=== PATIENT | male | born 1955 | race Caucasian/White ===

== ENCOUNTER 2020-04-22 00:23 | Emergency (ER) | payer BC, OTHER ==
[~2020-04-22] VITALS: Ht 185.4 cm; Wt 91.0 kg
[~2020-04-22 00:23] MED LIST: TETRACAINE 0.5% OPHTH SOLN 4 ML BTL (SINGLE DOSE ONLY) ONE
[2020-04-22 00:26] VITALS: BP 165/90
[2020-04-22] MEDS ORDERED: NS IV 1000 ML 2,000 ML ONE (00:27)
--- OUTSIDE RECORDS SUMMARY | 2020-04-22 00:30 | XMS REPORT | Continuity of Care Document ---
Author Organization Unknown Address Unknown Phone Unavailable Allergies There is no data. Medications There is no data. Problems There is no data. Procedures There is no data. Results Test Result Range PDM - 09 PANEL (PROFILE 1) - 08/22/19 08 :05 Prescribed Drug 1 Alprazolam NRG Creatinine 89.0 mg/dL > or = 20.0 pH 6.0 4.5-9.0 Oxidant NEGATIVE mcg/mL <200 Amphetamines NEGATIVE ng/mL <500 medMATCH Amphetamines CONSISTENT NRG Benzodiazepines POSITIVE ng/mL <100 Marijuana Metabolite NEGATIVE ng/mL <20 medMATCH Marijuana Metab CONSISTENT NRG Cocaine Metabolite NEGATIVE ng/mL <150 medMATCH Cocaine Metab CONSISTENT NRG Opiates NEGATIVE ng/mL <100 medMATCH Opiates CONSISTENT NRG Oxycodone NEGATIVE ng/mL <100 medMATCH Oxycodone CONSISTENT NRG COMMENT NRG Alphahydroxyalprazolam 51 ng/mL <25 medMATCH aOH alprazolam CONSISTENT NRG Alphahydroxymidazolam NEGATIVE ng/mL < 50 medMATCH aOH midazolam CONSISTENT NRG Alphahydroxytriazolam NEGATIVE ng/mL < 50 medMATCH aOH triazolam CONSISTENT NRG Aminoclonazepam NEGATIVE ng/mL <25 medMATCH Aminoclonazepam CONSISTENT NRG Hydroxyethylflurazepam NEGATIVE ng/mL <50 medMATCH OH,Et flurazepam CONSISTENT NR G Lorazepam NEGATIVE ng/mL <50 medMATCH Lorazepam CONSISTENT NRG Nordiazepam NEGATIVE ng/mL <50 medMATCH Nordiazepam CONSISTENT NRG Oxazepam NEGATIVE ng/mL <50 medMATCH Oxazepam CONSISTENT NRG Temazepam NEGATIVE ng/mL <50 medMATCH Temazepam CONSISTENT NRG Barbiturates NEGATIVE ng/mL <300 medMATCH Barbiturates CONSISTENT NRG Methadone Metabolite NEGATIVE ng/mL <100 medMATCH Methadone Metab CONSISTENT NRG Phencyclidine NEGATIVE ng/mL <25 medMATCH Phencyclidine CONSISTENT NRG Encounters ACCT No. Visit Date/Time Discharge Status Pt. Type Provider Facility Loc./Unit Complaint [id number] 08/22/2019 08:00:00 08/22/2019 23:59: 59 CLS Outpatient [facility] [id number] 08/22/2019 08:00:00 Document Registration [id number] 04/22/2020 00:26:[address] Emergency JOSUE MACIEL, BORIS Thomas [facility] ER FS FB IN BOTH EYES
--- NOTE | 2020-04-22 00:43 | ED General ---
General Stated Complaint: FB IN BOTH EYES Source of Information: Patient Exam Limitations: No Limitations History of Present Illness Date Seen by Provider: April 22, 2020 Time Seen by Provider: 12:25 Initial Comments This patient is a 64-year-old male that presents to the emergency Department for chemical rodriguez to the eyes. Patient states he was trying to get some chlorine powder out to do a shock on his swimming full. States some powder In his eyes. Patient states he did get in the shower and irrigate his eyes for about 20 minutes for still having some irritation and burning and scratching to his eyes. Patient's visual acuity is normal patient is a significant eye irritation. Patient had poison control called us is 1 maintain a pH of 7-8 on the eyes. On exam patient has good visual acuity as stated above. We will place Elmer's lenses and irrigated each eye with 1000 cc of normal saline. Evaluate treat further as needed. Timing/Duration: 4-6 Hours Allergies and Home Medications Allergies Coded Allergies: codeine (Verified Allergy, Unknown, 04/22/20) Patient Home Medication List Home Medication List Reviewed: Yes Review of Systems Review of Systems Constitutional: No no symptoms reported; see HPI; No chills, No diaphoresis, No dizziness, No fever, No malaise, No weakness, No weight gain, No weight loss, No other EENTM: see HPI, eye pain, tearing; No no symptoms reported, No ear discharge, No hearing loss, No ear pain, No blurred vision, No double vision, No vision loss, No dental problems, No hoarseness, No mouth pain, No mouth swelling, No epistaxis, No nose congestion, No nose pain, No throat pain, No throat swelling, No other Respiratory: No no symptoms reported, No see HPI, No cough, No dyspnea on exertion, No hemoptysis, No orthopnea, No phlegm, No short of breath, No stridor, No wheezing, No other Cardiovascular: No no symptoms reported, No see HPI, No chest pain, No edema, No Hx of Intervention, No palpitations, No syncope, No vascular heart diseas, No other Gastrointestinal: No RUQ, No LUQ, No RLQ, No LLQ, No no symptoms reported, No see HPI, No abdominal pain, No constipation, No diarrhea, No dysphagia, No hematemesis, No heartburn, No jaundice, No loss of appetite, No melena, No nausea, No vomiting, No other Genitourinary: No no symptoms reported, No see HPI, No decreased output, No discharge, No dysuria, No frequency, No hematuria, No hesitancy, No incontinence, No nocturia, No pain, No other Musculoskeletal: No no symptoms reported, No see HPI, No back pain, No gout, No joint pain, No joint swelling, No muscle pain, No muscle stiffness, No muscle cramps, No muscle twitching, No muscle weakness, No neck pain, No other Skin: No no symptoms reported, No see HPI, No change in color, No change in hair/nails, No dryness, No hx of skin cancer, No lesions, No lumps, No pruritus, No rash, No other Psychiatric/Neurological: Denies No Symptoms Reported, Denies See HPI, Denies Anxiety, Denies Depressed, Denies Emotional Problems, Denies Headache, Denies Numbness, Denies Paresthesia, Denies Pre-Existing Deficit, Denies Seizure, Denies Tingling, Denies Tremors, Denies Weakness, Denies Other Hematologic/Lymphatic: Denies No Symptoms Reported, Denies See HPI, Denies Anemia, Denies Blood Clots, Denies Easy Bleeding, Denies Easy Bruising, Denies Swollen Glands, Denies Other Immunological/Allergic: denies no symptoms reported, denies see HPI, denies food allergy, denies grass allergy, denies mold allergy, denies pollen allergy, denies HIV/AIDS, denies transplant Past Apltunl-Pqpocf-Mzwgdh Hx Patient Social History Recent Foreign Travel: No Contact w/Someone Who Travel: No Physical Exam Vital Signs Vital Signs - First Documented 04/22/20 00:26 Temp 36.1 Pulse 70 Resp 18 B/P (MAP) 165/90 (115) Pulse Ox 98 O2 Delivery Room Air Capillary Refill : Height, Weight, BMI Height: '" Weight: lbs. oz. kg; BMI Method: General Appearance: No Apparent Distress, WD/WN Eyes: Bilateral Eye Lid Inflammation, Bilateral Eye Other (the visual acuity is normal bilaterally patient does wear corrective glasses. Patient's symptoms consistent with chemical conjunctivitis.) HEENT: PERRL/EOMI, TMs Normal, Normal ENT Inspection, Pharynx Normal Neck: Full Range of Motion, Normal Inspection, Non Tender, Supple, Carotid Bruit Respiratory: Chest Non Tender, Lungs Clear, Normal Breath Sounds, No Accessory Muscle Use, No Respiratory Distress Cardiovascular: Regular Rate, Rhythm, No Edema, No Gallop, No JVD, No Murmur, Normal Peripheral Pulses Gastrointestinal: Normal Bowel Sounds, No Organomegaly, No Pulsatile Mass, Non Tender, Soft Skin: Normal Color, Warm/Dry Progress/Results/Core Measures Suspected Sepsis SIRS Temperature: Pulse: Respiratory Rate: Blood Pressure / Mean: Results/Orders My Orders Orders - BORIS SALAS MD Tetracaine 0.5% Ophth Rama Sdv (Tetracai (04/22/20 00:23) Ns Iv 1000 Ml (Sodium Chloride 0.9%) (04/22/20 00:27) Tetracaine 0.5% Ophth Rama Sdv (Tetracai (04/22/20 00:45) Ns Iv 1000 Ml (Sodium Chloride 0.9%) (04/22/20 00:45) Ns Iv 1000 Ml (Sodium Chloride 0.9%) (04/22/20 00:45) Medications Given in ED Current Medications Medications Dose Ordered Sig/Thierry Route Start Time Stop Time Status Last Admin Dose Admin Sodium Chloride 1,000 ml @ 999 mls/hr ONCE ONCE IV 04/22/20 00:45 04/22/20 01:45 04/22/20 00:45 999 MLS/HR Sodium Chloride 1,000 ml @ 999 mls/hr ONCE ONCE IV 04/22/20 00:45 04/22/20 01:45 04/22/20 00:46 999 MLS/HR Tetracaine HCl 1 OR 2 DROPS INTO AFFEC... ONCE ONCE OP 04/22/20 00:45 04/22/20 00:46 DC 04/22/20 00:46 1 ML Vital Signs/I&O 04/22/20 00:26 Temp 36.1 Pulse 70 Resp 18 B/P (MAP) 165/90 (115) Pulse Ox 98 O2 Delivery Room Air Capillary Refill : Progress Note : Time: 01:03 Progress Note Placed Morgans lens in both eyes bilaterally and irrigated with 1000 mL of normal saline to each eye. Patient's visual acuity after simms is 20/20 with corrective lenses. Patient states she is feeling much better ice continue to be significantly injected due to chemical rodriguez. Chemical conjunctivitis. We will place erythromycin ointment in eyes bilaterally. An patch eyes patiently patches in place for 12-24 hours. Patient will then be treated with Bleph-10 drops... Patient is instructed to follow up with ophthalmology in one to 2 days. Departure Impression Primary Impression: Chemical conjunctivitis of both eyes Disposition: 01 HOME, SELF-CARE Condition: Stable Departure-Patient Inst. Decision time for Depature: 01:04 Referrals: TIANA GRAFF APRN (PCP) Primary Care Physician Patient Instructions: Chemical Eye Injury (DC) Add. Discharge Instructions: Keep ice patch with erythromycin ointment for the next 12-24 hours as instructed. Then irrigate eyes and then use medicated drops as instructed. Follo w-up with ophthalmology in one to 2 days. Scripts Sulfacetamide Sodium (Bleph-10) 5 Ml Drops 5 ML OP QID for 7 Days, #1 DROPS 0 Refills Prov: BORIS SALAS MD 04/22/20 BORIS SALAS MD April 22, 2020 00:43
[2020-04-22] MEDS ORDERED: TETRACAINE 0.5% OPHTH SOLN 4 ML BTL (SINGLE DOSE ONLY) OP ONE (00:45)
[2020-04-22] MEDS ORDERED: NS IV 1000 ML 1,000 ML IV ONE ×2 (00:45)
[2020-04-22] MEDS ORDERED: ERYTHROMYCIN OPHTH OINT 1 GM (SINGLE USE) TUBE ONE (01:03)
[2020-04-22] MEDS ORDERED: SULF5DRO OP (01:07)
[2020-04-22] MEDS ORDERED: ERYTHROMYCIN OPHTH OINT 1 GM (SINGLE USE) TUBE OP SCH (01:15)
== END 2020-04-22 01:20 | disposition home or self-care (01) ==
LOC: EDUNIT# 00:23 → ER FS 00:26
DX: T26.61XA Corrosion of cornea and conjunctival sac, right eye, initial encounter (principal); T26.62XA Corrosion of cornea and conjunctival sac, left eye, initial encounter; Z88.5 Allergy status to narcotic agent
CPT/HCPCS: 99283

== ENCOUNTER → 2021-06-04 | Outpatient (CLI) | payer BC ==
[~2021-06-04] MED LIST changes: +SULF5DRO OP; -TETRACAINE 0.5% OPHTH SOLN 4 ML BTL (SINGLE DOSE ONLY) ONE
== END ==
LOC: LAB FS 10:16
PROVIDERS: ATTEND Orthopaedic Surgery
DX: Z01.812 Encounter for preprocedural laboratory examination (principal); Z20.822 Contact with and (suspected) exposure to COVID-19
CPT/HCPCS: 87635

== ENCOUNTER → 2022-01-17 | Outpatient (CLI) | payer BC, MEDICARE ==
[~2022-01-17] MED LIST changes: +CATHETER FLUSH 10 ML SYR IV PRN; +HOLD METFORMIN - RECEIVED CONTRAST 20 ML VIAL IV SCH; +IOHEXOL 350 MG/ML 150 ML (OMNIPAQUE 350) VIAL IV ONE; +NS 100 ML (IVPB) BAG IV ONE
[2022-01-17 10:09] LABS: CREATININE SERUM 1.12 MG/DL (0.60-1.30)
--- NOTE | 2022-01-17 11:49 | Diagnostic Imaging Report ---
PROCEDURE: CT Angio Abdomen/Pelvis with. TECHNIQUE: Multiple contiguous axial images were obtained through the abdomen and pelvis after the uneventful bolus administration of intravenous contrast. Sagittal and coronal MIP reconstructions with then performed. All CT scans use one or more of the following dose optimizing techniques: automated exposure control, MA and/or KvP adjustment based on patient size and exam type or iterative reconstruction. INDICATION: Venous insufficiency. FINDINGS: The abdominal aorta is widely patent with mild atherosclerotic calcification. Celiac trunk and superior mesenteric arteries are unremarkable and patent and small inferior mesenteric artery is also widely patent. Iliac and femoral arteries are unremarkable as visualized. There is normal caliber of inferior vena cava throughout the abdomen and pelvis. The visualized common femoral veins and iliac veins are also unremarkable without filling defect or narrowing. Several low-density foci are seen within the liver parenchyma indicating subcentimeter cysts with an approximately 1 cm transient enhancing nodule in the central right lobe which could represent area of focal nodular hyperplasia. No gallbladder, pancreatic, adrenal gland or splenic lesion is identified. Kidneys are also unremarkable with normal perfusion. There is no free fluid in the abdomen or pelvis. No pathologically enlarged adenopathy is seen. The unopacified bladder is unremarkable. IMPRESSION: Apart from atherosclerosis, there is no great vessel abnormality seen within the abdomen or pelvis. In particular, there is no evidence of venous filling defect, stenosis or occlusion. Otherwise no acute abnormality is seen. Dictated by: Dictated on workstation # [id number]
== END ==
LOC: RAD FS 09:30
DX: I70.0 Atherosclerosis of aorta (principal); I87.2 Venous insufficiency (chronic) (peripheral)
CPT/HCPCS: 36415; 74174; 82565; 84520; Q9967

== ENCOUNTER → 2022-02-15 | Outpatient (CLI) | payer MEDICARE, OTHER ==
[~2022-02-15] MED LIST changes: -CATHETER FLUSH 10 ML SYR IV PRN; -HOLD METFORMIN - RECEIVED CONTRAST 20 ML VIAL IV SCH; -IOHEXOL 350 MG/ML 150 ML (OMNIPAQUE 350) VIAL IV ONE; -NS 100 ML (IVPB) BAG IV ONE
--- NOTE | 2022-02-15 13:57 | Diagnostic Imaging Report ---
PROCEDURE: US left lower extremity venous. TECHNIQUE: Multiple real-time grayscale images were obtained over the left lower extremity in various projections. Additional duplex Doppler and color Doppler images were also obtained. INDICATION: Left leg pain. Patient had a DVT one-two months ago. There is no evidence of left lower extremity DVT. Left lower extremity deep venous system demonstrates normal compressibility with normal response to augmentation and Valsalva. No fluid collection or mass is detected. IMPRESSION: No evidence of left lower extremity DVT. Dictated by: Dictated on workstation # [id number]
== END ==
LOC: RAD 13:00
PROVIDERS: ATTEND Nurse Practitioner Acute Care
DX: M79.605 Pain in left leg (principal); Z86.718 Personal history of other venous thrombosis and embolism

== ENCOUNTER → 2022-03-04 | Outpatient (CLI) | payer MEDICARE, OTHER ==
--- NOTE | 2022-03-04 11:31 | Diagnostic Imaging Report ---
INDICATION: VARICOSE VEINS OF LEFT LOWER EXTREMITIES WITH PAIN TECHNIQUE: Multiple real-time grayscale images were obtained over the left lower extremity in various projections, bilaterally. Additional duplex Doppler and color Doppler images were also obtained. CORRELATION STUDY: None FINDINGS: Color and grayscale sonographic images demonstrate no intraluminal defect within the visualized portion of the common femoral, superficial femoral and/or popliteal veins to suggest thrombus formation. These vessels demonstrate normal response to compression and augmentation. No soft tissue fluid collection. IMPRESSION: 1. Negative for deep venous thrombosis of the left leg. Dictated by: Dictated on workstation # [id number]
== END ==
LOC: RAD 10:30
DX: I83.812 Varicose veins of left lower extremity with pain (principal)

== ENCOUNTER → 2023-03-10 | Outpatient (CLI) | payer MEDICARE, OTHER ==
--- NOTE | 2023-03-10 13:19 | Diagnostic Imaging Report ---
INDICATION: VARICOSE VEINS OF LEFT LOWER EXTREMITIES WITH PAIN TECHNIQUE: Multiple real-time grayscale images were obtained over the left lower extremity in various projections. Additional duplex Doppler and color Doppler images were also obtained. CORRELATION STUDY: 03/04/2022 FINDINGS: Color and grayscale sonographic images demonstrate no intraluminal defect within the visualized portion of the common femoral, superficial femoral and/or popliteal veins to suggest thrombus formation. These vessels demonstrate normal response to compression and augmentation. No soft tissue fluid collection. IMPRESSION: 1. Negative for deep venous thrombosis of the left leg. Dictated by: Dictated on workstation # [id number]
== END ==
LOC: RAD 11:47
PROVIDERS: ATTEND Surgery
DX: I83.812 Varicose veins of left lower extremity with pain (principal)